=== PATIENT | female | born 1980 | race Two or more races ===

== ENCOUNTER → 2020-11-27 | Day surgery (SDC) | payer OTHER ==
[~2020-11-27] VITALS: Ht 157.5 cm; Wt 107.0 kg
[~2020-11-27] MED LIST: SYNTHROID88 MCG
--- NOTE | 2020-11-27 04:43 | NUR ---
PTE ALERTA Y ORIENTADA X3 AMBULANDO ACOMPANA[place]. PTE REFIERE QUE SE ENCUENTRA EN MITUL DE EMRGENCIA POR ORDEN DE PARA SER ADMITIDA POR MISSED .
--- NOTE | 2020-11-27 05:10 | NUR ---
EVALUA PTE. SE EDUCA A PTE SOBRE [place] MEDICO. PTE REFIERE COMPRENDER. SE REALIZAN MUESTRAS DE LABORATORIO BAJO MEDIDAS ASEPTICAS Y SE ENVIAN AL LABORATORIO. SE ADMINISTRA IV'S ZELDA ORDEN MEDICA.
== END | disposition home or self-care (01) ==
LOC: ER 04:33 → CIR.AMB 04:51 → ER 04:51 → CIR.AMB 04:51 → ER 05:42 → SEC-K 05:42 → EDSTATUS 07:00 → O/R 07:50 → SEC-K 07:50 → O/R 13:45
PROVIDERS: ATTEND Obstetrics & Gynecology
DX: O02.1 Missed abortion (principal); Z20.822 Contact with and (suspected) exposure to COVID-19

== ENCOUNTER → 2021-12-13 | Emergency (ER) | payer OTHER ==
[~2021-12-13] VITALS: Ht 157.5 cm; Wt 109.3 kg
[~2021-12-13] MED LIST changes: +CRESTOR20 MG PO; +SYNTHROID88 MCG PO
== END | disposition home or self-care (01) ==
LOC: ER 09:36
DX: N92.1 Excessive and frequent menstruation with irregular cycle (principal); Z88.6 Allergy status to analgesic agent; Z88.2 Allergy status to sulfonamides; Z88.8 Allergy status to other drugs, medicaments and biological substances

== ENCOUNTER 2022-02-18 05:09 | Day surgery (SDC) | payer OTHER ==
[~2022-02-18] VITALS: Ht 157.5 cm; Wt 106.6 kg
== END 2022-02-18 12:45 | disposition home or self-care (01) ==
LOC: CIR.AMB 05:09
PROVIDERS: ATTEND Obstetrics & Gynecology
DX: N93.8 Other specified abnormal uterine and vaginal bleeding (principal); Z20.822 Contact with and (suspected) exposure to COVID-19; Z88.2 Allergy status to sulfonamides; Z91.013 Allergy to seafood; Z88.6 Allergy status to analgesic agent; Z88.8 Allergy status to other drugs, medicaments and biological substances; E78.5 Hyperlipidemia, unspecified; Z86.16 Personal history of COVID-19; G43.909 Migraine, unspecified, not intractable, without status migrainosus; E03.9 Hypothyroidism, unspecified; F41.0 Panic disorder [episodic paroxysmal anxiety]; E66.01 Morbid (severe) obesity due to excess calories